=== PATIENT | female | born 1940 | race Caucasian/White ===

== ENCOUNTER 2016-09-25 16:02 | Emergency (ER) | payer MEDICARE ==
[2016-09-25 16:22] VITALS: BP 161/73
--- NOTE | 2016-09-25 16:55 | UC ---
Knee Pain HPI - HPI Summary HPI Summary: The patient comes in today for: 1. Knee pain: Onset: 3 days ago. Palliative/provocative: Nothing makes the knee painful or causes any new symptoms. Quality: No pain today. Region: Right knee Severity: 0/10 Time: Comes and goes. Associated symptoms: Event: She fell 3 days ago. She was going down the stairs when she felt forward and to the right side. During the fall, she ended up ending on her right knee. There was some pain at that time. She was able to walk around with no problems until today. She states that she was able to walk into this urgent care center with no pain. But, while she was in restoration today for an hour , while sitting the pain got worse. She noticed some redness before. She is very much concerned about a possible infection. She has not taken her temperature at home. She put ice on the knee for 10 minutes just before she came in to see us. She is not having pain at this time. When she was in bed this morning, she was doing "some exercises" and there was no pain, but just "tightness" as expected for stretching of the knee. * - History of Current Complaint Chief Complaint: UCLowerExtremity Stated Complaint: KNEE INJURY Time Seen by Provider: 09/25/16 16:20 Hx Obtained From: Patient ?: No - Allergies/Home Medications Allergies/Adverse Reactions: Allergies Allergy/AdvReac Type Severity Reaction Status Date / Time Codeine Allergy Mild Abdominal Verified 09/25/16 16:12 Pain Latex Allergy Hives Verified 09/25/16 16:12 Nickel Allergy Itching Verified 09/25/16 16:12 PMH/Surg Hx/FS Hx/Imm Hx Previously Healthy: No - "lymph nodes in the chest." Endocrine History Of: Reports: Thyroid Disease - hypo Denies: Diabetes, Hyperthyroidism, Hypothyroidism, Dyslipidemia Cardiovascular History Of: Denies: Cardiac Disorders, Hypertension, Pacemaker/ICD, Myocardial Infarction , Congestive Heart Failure, Atrial Fibrillation, Deep Vein Thrombosis, Bleeding Disorders Respiratory History Of: Denies: COPD, Asthma, Bronchitis, Pneumonia, Pulmonary Embolism GI/ History Of: Reports: Gastroesophageal Reflux - On no medications for this. Denies: Ulcer, Gastrointestinal Bleed, Gall Bladder Disease, Kidney Stones, Diverticulitis, Renal Disease, Urosepsis Neurological History Of: Denies: TIA, CVA, Dementia, Seizures, Migraine Psychological History Of: Reports: Anxiety - But on no medications. Denies: Depression, Bipolar Disorder, Schizophrenia, Post Traumatic Stress Disorder Cancer History Of: Denies: Lung Cancer, Colorectal Cancer, Breast Cancer, Prostate Cancer, Cervical Cancer Other History Of: Negative For: HIV, Hepatitis B, Hepatitis C, Anticoagulant Therapy - Surgical History Surgical History: Yes Surgery Procedure, Year, and Place: TUBAL LIGATION 1974; D&C 2X IN 1998; APPY; RT KNEE RELACEMENT 06/09/2014 AT [facility]; CATARACT SX RT EYE 2014 ; TOOTH EXTRACTIONS--WISDOM TEETH; COLONSCOPY 1X 2012 DONE AT [facility]; - Family History Known Family History: Positive: Cardiac Disease Negative: Hypertension - Social History Occupation: Retired Alcohol Use: Occasionally Substance Use Type: None Smoking Status (MU): Former Smoker When Did the Patient Quit Smoking/Using Tobacco: 40 years ago - Immunization History Most Recent Influenza Vaccination: unk Most Recent Tetanus Shot: up to date Most Recent Pneumonia Vaccination: up to date Review of Systems Constitutional: Negative Skin: Negative Eyes: Negative ENT: Negative Respiratory: Negative Cardiovascular: Negative Gastrointestinal: Negative Genitourinary: Negative Musculoskeletal: Arthralgia, Myalgia All Other Systems Reviewed And Are Negative: Yes Physical Exam Triage Information Reviewed: Yes Appearance: Well-Appearing, No Pain Distress, Well-Nourished Vital Signs: Initial Vital Signs Temp 98.2 F 09/25/16 16:14 Pulse 86 09/25/16 16:14 Resp 16 09/25/16 16:14 BP 161/73 09/25/16 16:14 Pulse Ox 97 09/25/16 16:14 Vital Signs Reviewed: Yes Eyes: Positive: Conjunctiva Clear. Negative: Discharge ENT: Positive: Hearing grossly normal. Negative: Pharyngeal erythema, Nasal congestion, Nasal drainage, TM bulging, TM dull, TM red, Tonsillar swelling, Tonsillar exudate Dental: Negative: Gross Decay/Caries @, Dental Fracture @ Neck: Positive: Supple, Nontender, No Lymphadenopathy. Negative: Nuchal Rigidity Respiratory: Positive: Chest non-tender, Lungs clear, No respiratory distress, No accessory muscle use. Negative: Crackles, Wheezing Cardiovascular: Positive: RRR, No Murmur Abdomen Description: Positive: Nontender, No Organomegaly, Soft. Negative: Distended, Guarding Musculoskeletal: Positive: Strength Intact, ROM Intact, Other: - Right knee: Well-healed anterior midline surgical scar. There is a 3 x 4 cm erythema, tender area with yellowing area around it. Neurological: Positive: Alert, Muscle Tone Normal Psychological: Positive: Age Appropriate Behavior, Consolable Skin: Negative: rashes, breakdown Diagnostics - Radiology No standard instances Xray Interpretation: No Acute Changes - IMPRESSION: STATUS POST TOTAL RIGHT KNEE REPLACEMENT SURGERY, NO EVIDENCE OF FRACTURE. Radiology Interpretation Completed By: Radiologist Knee Pain Course/Dx - Differential Dx/Diagnosis Differential Diagnosis/HQI/PQRI: Fracture (Closed), Sprain, Strain Provider Diagnoses: Contusion of the right anterior knee. Discharge - Discharge Plan Condition: Stable Disposition: HOME Patient Education Materials: Contusion in Adults (ED), Hematoma (ED) Referrals: Claribel Caba MD [Primary Care Provider] - 1 Week (Please see your primary care or orthopedic surgeon for follow up this coming week. If you get worse, please be seen sooner by us or the ER.)
--- NOTE | 2016-09-25 17:51 | RAD ---
INDICATION: Right knee injury. TECHNIQUE: 4 views of the right knee were obtained. FINDINGS: The patient is status post total right knee replacement surgery. The bones and prostheses are in normal alignment. No fracture is seen. There is no evidence for loosening. IMPRESSION: STATUS POST TOTAL RIGHT KNEE REPLACEMENT SURGERY, NO EVIDENCE OF FRACTURE.
== END 2016-09-25 18:25 | disposition home or self-care (01) ==
LOC: UCEAST 16:02
DX: S80.01XA Contusion of right knee, initial encounter (principal); W10.9XXA Fall (on) (from) unspecified stairs and steps, initial encounter; Y93.9 Activity, unspecified; Y92.9 Unspecified place or not applicable; Z96.651 Presence of right artificial knee joint; Z88.5 Allergy status to narcotic agent; Z87.891 Personal history of nicotine dependence
CPT/HCPCS: 99211; G0463

== ENCOUNTER 2017-12-02 08:36 | Emergency (ER) | payer MEDICARE ==
--- NOTE | 2017-12-02 10:21 | UC ---
Back Pain HPI - HPI Summary HPI Summary: Patient states that about 10 days ago she twisted her torso to the right side and ever since she has had pain on low back that radiates diagonally towards her abdomen. Pain responds to ibuprofen and she does not have any pain currently. Denies history of urolithiasis or dysuria, denies fever. States she had a recent abdominal sonogram which shows gallstone vs gallbladder polyp but denies that the pain has relationship with meals. - History of Current Complaint Chief Complaint: UCGeneralIllness Stated Complaint: SIDE ABDOMINAL PAIN, AND BACK PAIN Time Seen by Provider: 12/02/17 10:02 Hx Obtained From: Patient ?: No Onset/Duration: Sudden Onset, Lasting Weeks Timing: Intermittent, Lasting Minutes Severity Initially: Mild Severity Currently: Mild Pain Intensity: 0 Back Pain: Is Diffuse, Radiates To - right lower quadrant Character: Dull Aggravating Factor(s): Movement Alleviating Factor(s): Rest, OTC Meds Associated Signs And Symptoms: Positive: Negative - Risk Factors AAA Risk Factors: Negative TAD Risk Factors: Negative Cauda Equina Risk Factors: Negative Epidural Abscess Risk Factors: Negative - Allergies/Home Medications Allergies/Adverse Reactions: Allergies Allergy/AdvReac Type Severity Reaction Status Date / Time codeine Allergy stomach Verified 12/02/17 08:55 upset latex Allergy Rash Verified 12/02/17 08:55 nickel Allergy Rash Verified 12/02/17 08:55 PMH/Surg Hx/FS Hx/Imm Hx Previously Healthy: Yes Endocrine History: Hypothyroidism Other History Of: Negative For: HIV, Hepatitis B, Hepatitis C, Anticoagulant Therapy - Surgical History Surgical History: Yes Surgery Procedure, Year, and Place: TUBAL LIGATION 1974; D&C 2X IN 1998; APPY; RT KNEE RELACEMENT 06/09/2014 AT [facility] IN [facility]; CATARACT SX RT EYE 2014 ; TOOTH EXTRACTIONS--WISDOM TEETH; COLONSCOPY 1X 2012 DONE AT [facility]; - Family History Known Family History: Positive: None, Cardiac Disease Negative: Hypertension - Social History Alcohol Use: Occasionally Substance Use Type: None Smoking Status (MU): Former Smoker When Did the Patient Quit Smoking/Using Tobacco: 40 years ago - Immunization History Most Recent Influenza Vaccination: unk Most Recent Tetanus Shot: up to date Most Recent Pneumonia Vaccination: up to date Review of Systems Constitutional: Negative Musculoskeletal: Myalgia All Other Systems Reviewed And Are Negative: Yes Physical Exam Triage Information Reviewed: Yes Appearance: Well-Appearing, Obese Vital Signs: Initial Vital Signs Temp 97.9 F 12/02/17 08:56 Pulse 69 12/02/17 08:56 Resp 16 12/02/17 08:56 BP 166/75 12/02/17 08:56 Pulse Ox 99 12/02/17 08:56 Vital Signs Reviewed: Yes Eyes: Positive: Conjunctiva Clear ENT: Positive: Pharynx normal, Uvula midline Neck: Positive: Supple, Nontender, No Lymphadenopathy Respiratory: Positive: Chest non-tender, Lungs clear, Normal breath sounds, No respiratory distress Cardiovascular: Positive: RRR, No Murmur, Pulses Normal, Brisk Capillary Refill Abdomen Description: Positive: Nontender, No Organomegaly, Soft Bowel Sounds: Positive: Present Musculoskeletal: Positive: ROM Intact, No Edema, Other: - SLR negative b/l, gait wnl, DTR brisk and symmetrical Neurological: Positive: Alert, Muscle Tone Normal Back Pain Course/Dx - Course Course Of Treatment: muscle sprain responsive to NSAIDS, instructed patient to continue them as needed and to f/u with PCP. UA within normal limits - Differential Dx/Diagnosis Provider Diagnoses: Muscular Sprain Discharge - Sign-Out/Discharge Documenting (check all that apply): Discharge - Discharge Plan Condition: Stable Disposition: HOME Patient Education Materials: Musculoskeletal Pain (ED), Lower Back Exercises ( ED) Referrals: Giovanni Babcock DO [Primary Care Provider] - - Billing Disposition and Condition Condition: STABLE Disposition: HOME
[2017-12-02 10:48] VITALS: BP 177/77
== END 2017-12-02 10:30 | disposition home or self-care (01) ==
LOC: UCEAST 08:36
DX: S33.5XXA Sprain of ligaments of lumbar spine, initial encounter (principal); X50.1XXA Overexertion from prolonged static or awkward postures, initial encounter; Y93.9 Activity, unspecified; Y92.9 Unspecified place or not applicable; R10.31 Right lower quadrant pain; E03.9 Hypothyroidism, unspecified; Z88.5 Allergy status to narcotic agent; Z91.040 Latex allergy status; Z87.891 Personal history of nicotine dependence
CPT/HCPCS: 81003; 99211; G0463

== ENCOUNTER 2018-02-14 16:21 | Emergency (ER) | payer MEDICARE ==
--- NOTE | 2018-02-14 18:16 | UC ---
Jamal Pond Rebecca, scribed for Deirdre Hernandez MD on 02/14/18 at 1803 . Dizzy HPI HPI Summary: Pt is a 77 y/o F who presents to [facility] accompanied by her sister c/o dizziness. Pt has been experiencing intermittent episodes of dizziness for multiple months which she reports are worse the past few days. Previously, symptoms were only in the morning, lasting until 4435-3077, though now symptoms do not resolve. Reports "I don't feel like me" and that she gets an " otherwordly kind of feeling" during these episodes. Additionally c/o "a sense of doom," tinnitus (L>R), and decreased stool production. States that she has had 2 of the "episodes of doom today" one prompting her PCP visit and the other prompting her [facility] visit.Pt states during the second episode she thought " this is how it ends" Denies N/V, CP, SOB. PMHx vertigo - has Meclizine which she last took at 1400 without change. Pt denies MORALES, vision changes. This feels different from vertigo symptoms. PCP is Dr Babcock, who she saw this morning due to current symptoms and she had blood work done. Has also had an echocardiogram done for these symptoms previously. Pt states had her carotid arteries checked which were "ok" Notes that she has been on a keto diet, which she has ceased without improvement of sx. Pt unsure if any brain imaging. Does not exercise regularly but is active Pt's medications reviewed this visit. - History Of Current Complaint Chief Complaint: UCDizziness Stated Complaint: DIZZY,RINGING IN EARS Hx Obtained From: Patient ?: No Onset/Duration: Still Present, Worse Since - Last few days Timing: Intermittent Episode Lasting Severity Currently: None Pain Intensity: 0 Pain Scale Used: 0-10 Numeric Aggravating Factor(s): Nothing Alleviating Factor(s): Nothing Associated Signs And Symptoms: Negative: Nausea, Vomiting, Chest Pain, SOB - Allergies/Home Medications Allergies/Adverse Reactions: Allergies Allergy/AdvReac Type Severity Reaction Status Date / Time codeine Allergy stomach Verified 02/14/18 16:43 upset latex Allergy Rash Verified 02/14/18 16:43 nickel Allergy Rash Verified 02/14/18 16:43 shellfish derived Allergy See Comment Verified 02/14/18 16:43 Home Medications: Home Medications Aspirin 1 tab 02/14/18 [History] Meclizine TAB* [Antivert 12.5 TAB*] 12.5 mg PO TID PRN 02/14/18 [History Confirmed 02/14/18] Multivitamin [Multivitamins] 1 cap PO 02/14/18 [History] Vitamin B Complex [Super B-50 Complex] 1 each PO 02/14/18 [History] PMH/Surg Hx/FS Hx/Imm Hx - Additional Past Medical History Additional PMH: PMHx: Hypothyroid, vertigo NEGATIVE PMHx: HTN, COPD, DM, asthma Previously Healthy: Yes Endocrine History: Thyroid Disease Other History Of: Negative For: HIV, Hepatitis B, Hepatitis C, Anticoagulant Therapy - Surgical History Surgical History: Yes Surgery Procedure, Year, and Place: TUBAL LIGATION 1974; D&C 2X IN 1998; APPY; RT KNEE RELACEMENT 06/09/2014 AT [facility] IN [facility]; CATARACT SX RT EYE 2014 ; TOOTH EXTRACTIONS--WISDOM TEETH; COLONSCOPY 1X 2012 DONE AT [facility]; - Family History Known Family History: Positive: Cardiac Disease, Other - Gallbladder CA Negative: Hypertension - Social History Occupation: Retired Lives: Alone Alcohol Use: Occasionally Substance Use Type: None Smoking Status (MU): Former Smoker When Did the Patient Quit Smoking/Using Tobacco: 40 years ago - Immunization History Most Recent Influenza Vaccination: unk Most Recent Tetanus Shot: up to date Most Recent Pneumonia Vaccination: up to date Review of Systems Constitutional: Other - "sense of doom" Skin: Negative Eyes: Negative ENT: Other - Tinnitus Respiratory: Other - Wheezing Cardiovascular: Negative Gastrointestinal: Negative Genitourinary: Other - Decreased stool production Motor: Negative Neurovascular: Negative Musculoskeletal: Negative Neurological: Other - Dizziness - "otherwordly" Psychological: Negative All Other Systems Reviewed And Are Negative: Yes - Comments Additional Review of Systems Comments: NEGATIVE: N/V, CP, SOB. Physical Exam - Summary Physical Exam Summary: Vital Signs Reviewed: Yes A+Ox3, appropriate mildly anxious Eyes: Conjunctiva Clear, TIMOTEO. EOM intact and full ENT: Hearing grossly normal TM x 2 clear, mmoist, uvula midline, no exudate, no erythema Neck: Positive: Supple Respiratory: Positive: No respiratory distress, No accessory muscle use Cardiovascular: well perfused abd soft Musculoskeletal Exam: ambulatory without difficulty or assistance Neurological: Positive: Alert Psychological: Positive: Normal Response To Family Skin: Positive: no rash, no ecchymosis Triage Information Reviewed: Yes Vital Signs: Initial Vital Signs Temp 97.9 F 02/14/18 16:35 Pulse 79 02/14/18 16:35 Resp 18 02/14/18 16:35 BP 154/61 02/14/18 16:35 Pulse Ox 97 02/14/18 16:35 Diagnostics - EKG Cardiac Rate: NL - 63 bpm Cardiac Rhythm: Sinus: Normal - No change when compared to EKG from April 2016 ST Segment: Normal - No acute ST T wave changes Dizzy Course/Dx - Course Course Of Treatment: Patient medication reviewed this visit. Blood pressure noted and patient informed to follow up with PCP. Pt reports increasing intensity of dizziness Pt states today had a sense of doom with spell. Pt states sx worse than over last 6 months. reviewed EKG - no acute findings. recommend pt to ED for further evaluation and treatment. Pt agreement to go for eval - will go by EMS. pt has to urinate - will collect urine. POC FSBG. IV. EMS. spoke with Dr. Johnson - aware of pt to ED 1820 - Differential Dx/Diagnosis Provider Diagnoses: dizziness. tinnitus Discharge - Sign-Out/Discharge Documenting (check all that apply): Discharge/Admit/Transfer - Discharge Plan Condition: Fair Disposition: TRANS HIGHER LVL OF CARE FAC Referrals: Giovanni Babcock DO [Primary Care Provider] - - Billing Disposition and Condition Condition: FAIR Disposition: Trans Higher Lvl of Care Fac The documentation as recorded by the Jamal thurman Rebecca accurately reflects the service I personally performed and the decisions made by , Deirdre Hernandez MD.
[2018-02-14 18:48] VITALS: BP 154/80
== END 2018-02-14 18:48 | disposition short-term general hospital (02) ==
LOC: UCEAST 16:21
DX: H93.13 Tinnitus, bilateral (principal); R42 Dizziness and giddiness; Z88.5 Allergy status to narcotic agent; Z91.040 Latex allergy status; Z91.09 Other allergy status, other than to drugs and biological substances; Z91.013 Allergy to seafood; Z87.891 Personal history of nicotine dependence
CPT/HCPCS: 81003; 93005; 99213; G0463

== ENCOUNTER 2018-02-14 19:21 | Emergency (ER) | payer MEDICARE ==
[2018-02-14] MEDS ORDERED: ALPRAZolam TAB* 0.25 MG PO ONE (19:54)
--- NOTE | 2018-02-14 20:27 | RAD ---
INDICATION: Dizziness. COMPARISON: Comparison is made with a prior CT of the brain from April 24, 2016. TECHNIQUE: Contiguous axial sections of the brain were obtained from the skull base to the vertex without contrast. FINDINGS: The ventricles, cisterns and sulci are within normal limits. No significant focal abnormality or mass effect is seen. There is no evidence for hemorrhage. No significant focal osseous abnormality is seen. The visualized portion of the paranasal sinuses and mastoid air cells appear clear. Incidental note is made of hyperostosis frontalis interna. IMPRESSION: NO EVIDENCE FOR ACUTE INTRACRANIAL ABNORMALITY.
[2018-02-14 20:47] LABS: Hematocrit 39 % (35-47); Hemoglobin 13.5 g/dl (12.0-16.0); Mean Corpuscular HGB Conc 34 g/dl (31-36); Mean Corpuscular Hemoglobin 30 pg (27-31); Mean Corpuscular Volume 87 fL (80-97); Mean Platelet Volume 7.6 um3 (7.4-10.4); Platelet Count 320 10^3/ul (150-450); Red Blood Count 4.53 10^6/ul (4.00-5.40); Red Cell Distribution Width 14 % (10.5-15)
[2018-02-14 20:58] LABS: ABS Basophils 0 10^3/ul (0-0.2); ABS Eosinophils 0 10^3/ul (0-0.6); ABS Lymphocytes 1.5 10^3/ul (1.0-4.8); ABS Monocytes 0.4 10^3/ul (0-0.8); ABS Neutrophils 4.1 10^3/ul (1.5-7.7); ABS Nucleated RBC 0 10^3/ul; Eosinophil % 0.4 % (0-6); Lymphocyte % 24.9 % (25-47); Nucleated Red Blood Cells % 0
[2018-02-14 21:11] LABS: EGFR Non-African American 74.2 (>60)
--- NOTE | 2018-02-14 21:53 | ED ---
Terrance Pond Elizabeth scribed for Britta Kimball MD on 02/14/18 at 1939 . Dizziness - HPI Summary HPI Summary: This patient is a 77 year old F BIBA to [facility] accompanied by her sister with a chief complaint of intermittent dizziness since several months ago. The patient reports that her symptoms have gotten worse since in the last few days. The patient rates the pain 0/10 in severity. Symptoms aggravated by nothing. Symptoms alleviated by nothing. Patient reports tinnitus. Patient denies difficulty ambulating. The patient describes strange [place] and out-of- this world feeling during these episodes and says she feels like Im going to lose it and pass out. The patient has PMHx of vertigo but reports that these episodes feel different from her vertigo symptoms. The patient reports that she took 25 mg of Meclizine at 14:00 but reports that her symptoms have not alleviated. - History Of Current Complaint Chief Complaint: EDDizziness Stated Complaint: DIZZINESS Time Seen by Provider: 02/14/18 19:36 Hx Obtained From: Patient Onset/Duration: Suddenly Timing: Intermittent Episode Lasting Severity Initially: Mild Severity Currently: Mild Character: Dizzy Aggravating Factor(s): Nothing Alleviating Factor(s): Nothing Associated Signs And Symptoms: Positive: Tinnitus. Negative: Unsteady Gait, Inability to Walk - Allergies/Home Medications Allergies/Adverse Reactions: Allergies Allergy/AdvReac Type Severity Reaction Status Date / Time codeine Allergy stomach Verified 02/14/18 16:43 upset latex Allergy Rash Verified 02/14/18 16:43 nickel Allergy Rash Verified 02/14/18 16:43 shellfish derived Allergy See Comment Verified 02/14/18 16:43 Home Medications: Home Medications Aspirin EC TAB* [Ecotrin EC Low Dose 81 MG*] 81 mg PO DAILY 02/14/18 [History Confirmed 02/14/18] Levothyroxine TAB* [Synthroid TAB*] 175 mcg PO DAILY 02/14/18 [History Confirmed 02/14/18] Meclizine TAB* [Antivert 12.5 TAB*] 12.5 mg PO TID PRN 02/14/18 [History Confirmed 02/14/18] Multivitamins/Minerals TAB* [Theragran/minerals TAB*] 1 tab PO DAILY 02/14/18 [ History Confirmed 02/14/18] Vitamin B Complex CAP* [B Complex CAP*] 1 cap PO DAILY 02/14/18 [History Confirmed 02/14/18] PMH/Surg Hx/FS Hx/Imm Hx Endocrine/Hematology History: Reports: Hx Thyroid Disease - hypo Denies: Hx Anticoagulant Therapy, Hx Diabetes, Hx Systemic Lupus Erythematosus Cardiovascular History: Reports: Other Cardiovascular Problems/Disorders - Weakness generalized Denies: Hx Congestive Heart Failure, Hx Deep Vein Thrombosis, Hx Hypertension , Hx Myocardial Infarction, Hx Pacemaker/ICD Respiratory History: Reports: Other Respiratory Problems/Disorders - HX MULTIPLE PNEUMONIA, USE OF INHALER NEEDED Denies: Hx Asthma, Hx Chronic Obstructive Pulmonary Disease (COPD), Hx Lung Cancer, Hx Pneumonia, Hx Pulmonary Embolism GI History: Reports: Other GI Disorders - appendectemy Denies: Hx Gall Bladder Disease, Hx Gastrointestinal Bleed, Hx Ulcer, Hx Urosepsis History: Denies: Hx Dialysis, Hx Kidney Stones, Hx Renal Disease Musculoskeletal History: Denies: Hx Rheumatoid Arthritis Neurological History: Reports: Other Neuro Impairments/Disorders - vertigo Denies: Hx Dementia, Hx Migraine, Hx Seizures, Hx Transient Ischemic Attacks (TIA) Psychiatric History: Reports: Hx Anxiety - But on no medications. Denies: Hx Depression, Hx Schizophrenia, Hx Bipolar Disorder, Hx Substance Abuse - Cancer History Hx Chemotherapy: No - Surgical History Surgery Procedure, Year, and Place: TUBAL LIGATION 1974; D&C 2X [place] 1998; APPY; RT KNEE RELACEMENT 06/09/2014 AT [facility] IN [facility]; CATARACT SX RT EYE 2014 ; TOOTH EXTRACTIONS--WISDOM TEETH; COLONSCOPY 1X 2012 DONE AT [facility]; - Immunization History Date of Tetanus Vaccine: unk Date of Influenza Vaccine: fall 2016 Infectious Disease History: Yes Infectious Disease History: Reports: Hx Shingles - 2013 Denies: Hx Clostridium Difficile, Hx Hepatitis, Hx Human Immunodeficiency Virus (HIV), Hx of Known/Suspected MRSA, Hx Tuberculosis, Hx Known/Suspected VRE , Hx Known/Suspected VRSA, History Other Infectious Disease, Traveled Outside the [place] in Last 30 Days - Family History Known Family History: Positive: Cardiac Disease, Other - Gallbladder CA Negative: Hypertension - Social History Alcohol Use: Occasionally Substance Use Type: Reports: None Smoking Status (MU): Former Smoker Review of Systems ENT: Other - POSITIVE TINNITUS Negative: Shortness Of Breath Negative: Vomiting, Nausea Negative: Decreased ROM Neurological: Other - POSITIVE DIZZINESS All Other Systems Reviewed And Are Negative: Yes Physical Exam - Summary Physical Exam Summary: VITAL SIGNS: Reviewed. GENERAL: ~Patient is a well-developed and nourished FEMALE who is lying comfortable in the stretcher. Patient is not in any acute respiratory distress. HEAD AND FACE: No signs of trauma. No ecchymosis, hematomas or skull depressions. No sinus tenderness. EYES: PERRLA, EOMI x 2, No injected conjunctiva, no nystagmus. EARS: Hearing grossly intact. Ear canals and tympanic membranes are within normal limits. MOUTH: Oropharynx within normal limits. NECK: Supple, trachea is midline, no adenopathy, no JVD, no carotid bruit, no c- spine tenderness, neck with full ROM. CHEST: Symmetric, no tenderness at palpation LUNGS: Clear to auscultation bilaterally. No wheezing or crackles. CVS: Regular rate and rhythm, S1 and S2 present, no murmurs or gallops appreciated. ABDOMEN: Soft, non-tender. No signs of distention. No rebound no guarding, and no masses palpated. Bowel sounds are normal. EXTREMITIES: FROM in all major joints, no edema, no cyanosis or clubbing. NEURO: Alert and oriented x 3. No acute neurological deficits. Speech is normal and follows commands. GCS 15 SKIN: Dry and warm Triage Information Reviewed: Yes Vital Signs On Initial Exam: Initial Vitals Temp Pulse Resp BP Pulse Ox 97.5 F 64 18 170/59 97 02/14/18 19:27 02/14/18 19:27 02/14/18 19:27 02/14/18 19:27 02/14/18 19:27 Vital Signs Reviewed: Yes Diagnostics - Vital Signs Vital Signs Temp Pulse Resp BP Pulse Ox 02/14/18 19:27 97.5 F 64 18 170/59 97 - Laboratory Result Diagrams: 02/14/18 20:36 02/14/18 20:36 Lab Statement: Any lab studies that have been ordered have been reviewed, and results considered in the medical decision making process. - CT CT Brain CT Interpretation: No Acute Changes - IMPRESSION: NO EVIDENCE FOR ACUTE INTRACRANIAL ABNORMALITY. Dr. Kimball has reviewed this report. CT Interpretation Completed By: Radiologist - EKG 20:11 Cardiac Rate: NL - at 63 bpm EKG Rhythm: Sinus Rhythm EKG Interpretation: left axis devation, nml interval Re-Evaluation - Re-Evaluation First Re-eval Re-Evaluation Time: 21:30 Change: Improved Comment: Patient reports feeling better after receiving Xanax. Imaging and labs reviewed with patient. Discussed discharge plan with patient. Dizzy Course/Dx - Course Course Of Treatment: Patient is 77 y/o F with PMHx of vertigo reporting intermittent dizziness that differs from her typical vertigo symptoms. Workup was negative. Patient has no difficulty ambulating. Imaging and labs reviewed with patient. The patient reports feeling better after she received Xanax. Patient will be discharged home with diagnosis of dizziness and anxiety and is advised to follow up with her primary care provider in 1-2 days. The patient is agreeable with this plan. - Diagnoses Provider Diagnoses: Anxiety, Dizziness Discharge - Sign-Out/Discharge Documenting (check all that apply): Discharge/Admit/Transfer - Discharge Plan Condition: Stable Disposition: HOME Discharge Disposition Comment: discharge home Patient Education Materials: Dizziness (ED), Anxiety (ED) Referrals: Giovanni Babcock DO [Primary Care Provider] - 2 Days (Follow-up with primary care physician in 1-2 days.) Additional Instructions: Follow-up with primary care physician in 1-2 days. Return to the emergency department with any new or worsening symptoms. The documentation as recorded by the Terrance thurman Elizabeth accurately reflects the service I personally performed and the decisions made by , Britta Kimball MD.
--- NOTE | 2018-02-14 22:12 | ED ---
Trerance Pond Elizabeth, rhodaed for Britta Kimball MD on 02/14/18 at 2208 . Re-Evaluation - Re-Evaluation First Re-eval Re-Evaluation Time: 21:30 Change: Improved Comment: Patient reports feeling better after receiving Xanax. Imaging and labs reviewed with patient. Discussed discharge plan with patient. Course/Dx - Course Course Of Treatment: Patient is 77 y/o F with PMHx of vertigo reporting intermittent dizziness that differs from her typical vertigo symptoms. Workup was negative. Patient has no difficulty ambulating. Imaging and labs reviewed with patient. The patient reports feeling better after she received Xanax. Patient will be discharged home with diagnosis of dizziness and anxiety and is advised to follow up with her primary care provider in 1-2 days. The patient is agreeable with this plan. - Diagnoses Provider Diagnoses: Dizziness Discharge - Sign-Out/Discharge Documenting (check all that apply): Discharge/Admit/Transfer - Discharge Plan Condition: Stable Disposition: HOME Discharge Disposition Comment: discharge home Patient Education Materials: Dizziness (ED), Tinnitus (ED) Referrals: Giovanni Babcock DO [Primary Care Provider] - 2 Days (Follow-up with primary care physician in 1-2 days.) Cory Pond MD [Medical Doctor] - 2 Days Additional Instructions: Follow-up with primary care physician in 1-2 days. Follow-up with Dr. Pond , ENT, in 1-2 days. Return to the emergency department with any new or worsening symptoms. - Billing Disposition and Condition Condition: STABLE Disposition: Home The documentation as recorded by the Terrance thurman Elizabeth accurately reflects the service I personally performed and the decisions made by , Britta Kimball MD.
[2018-02-14 22:24] VITALS: BP 154/61
== END 2018-02-14 22:22 | disposition home or self-care (01) ==
LOC: ED 19:21
DX: R42 Dizziness and giddiness (principal); F41.9 Anxiety disorder, unspecified; E03.9 Hypothyroidism, unspecified; Z87.891 Personal history of nicotine dependence; Z88.5 Allergy status to narcotic agent
CPT/HCPCS: 36415; 70450; 80053; 83735; 84443; 85025; 93005; 99282; A9270-GY

== ENCOUNTER 2021-04-17 16:48 | Inpatient (IN) ==
[2021-04-17 18:11] LABS: Urine Appearance Cloudy; Urine Bilirubin Negative (Negative); Urine Blood Negative (Negative); Urine Color Yellow; Urine Glucose Negative (Negative); Urine Ketones Negative (Negative); Urine Nitrite Negative (Negative); Urine Protein Negative (Negative); Urine Specific Gravity 1.003 (1.002-1.030); Urine Urobilinogen Negative (Negative)
[2021-04-17 18:23] LABS: Hematocrit 31 % (35-47); Mean Corpuscular HGB Conc 36 g/dL (31-36); Mean Corpuscular Hemoglobin 34 pg (27-31); Mean Corpuscular Volume 95 fL (80-97); Mean Platelet Volume 7.7 fL (7.4-10.4); Platelet Count 286 10^3/uL (150-450); Red Blood Count 3.26 10^6 /uL (3.70-4.87); Red Cell Distribution Width 19 % (10-15); White Blood Count 1.3 10^3/uL (3.5-10.8)
[2021-04-17 18:25] LABS: Urine Bacteria 1+ (Absent); Urine Red Blood Cell Trace(0-2/hpf) (Absent); Urine Squamous Epithelial Cell Present (Absent); Urine White Blood Cell 1+(6-10/hpf) (Absent)
[2021-04-17 18:32] LABS: ABS Lymphocytes 0.6 10^3/ul (1.0-4.8); ABS Monocytes 0.1 10^3/ul (0-0.8); ABS Neutrophils 0.6 10^3/ul (1.5-7.7); Eosinophil % 1.9 %; Lymphocyte % 44.9 %; Nucleated Red Blood Cells % 0.8
[2021-04-17 18:39] LABS: Activated Partial Thrombo Time 29.3 seconds (26.0-38.0); INR 1.14 (0.86-1.15)
[2021-04-17 18:42] LABS: Albumin 4.3 g/dL (3.2-5.2); Albumin/Globulin Ratio 1.2 (1-3); C Reactive Protein 43.79 mg/L (<8.01); Direct Bilirubin 0.2 mg/dL (0.03-0.18); Globulin 3.5 g/dL (2-4); Indirect Bilirubin 0.6 mg/dL (0.3-1.0); Total Bilirubin 0.8 mg/dL (0.2-1.0); Total Protein 7.8 g/dL (6.4-8.9)
[2021-04-17] MEDS ORDERED: Iodixanol (CONTRAST) 320 MG/ML 100 ML SDV IV ONE (19:02)
[2021-04-17 19:59] LABS: Folate 19.24 ng/mL (5.90-24.80)
[2021-04-17] MEDS ORDERED: cefTRIAXone 1 gm/50 mL NS BAG 1 GM/50 ML BAG IV ONE (22:19)
[2021-04-17] MEDS ORDERED: metroNIDAZOLE IV 500 MG/100ML 500 MG/100 ML BAG IVPB ONE (22:20)
[2021-04-18] MEDS: Enoxaparin 40 MG/0.4 ML SYR SUBCUT SCH (06:00)
[2021-04-18 06:36] LABS: Hematocrit 30 % (35-47); Hemoglobin 10.4 g/dL (12.0-16.0); Mean Corpuscular HGB Conc 34 g/dL (31-36); Mean Corpuscular Hemoglobin 32 pg (27-31); Mean Corpuscular Volume 94 fL (80-97); Mean Platelet Volume 7.4 fL (7.4-10.4); Platelet Count 263 10^3/uL (150-450); Red Blood Count 3.22 10^6 /uL (3.70-4.87); Red Cell Distribution Width 19 % (10-15)
[2021-04-18 06:44] LABS: ABS Lymphocytes 0.5 10^3/ul (1.0-4.8); ABS Monocytes 0.1 10^3/ul (0-0.8); ABS Neutrophils 0.4 10^3/ul (1.5-7.7); Eosinophil % 3.4 %; Lymphocyte % 52.2 %; Nucleated Red Blood Cells % 0.2
[2021-04-18 06:49] LABS: Albumin/Globulin Ratio 1.2 (1-3); Calcium 9.1 mg/dL (8.6-10.3); EGFR African American 74.2 (>60); EGFR Non-African American 61.3 (>60); Globulin 3.4 g/dL (2-4); Potassium 3.7 mmol/L (3.5-5.0); Total Bilirubin 0.7 mg/dL (0.2-1.0); Total Protein 7.4 g/dL (6.4-8.9)
[2021-04-18 07:30] LABS: RBC Parasite Smear No Parasites Seen (No Parasite)
[2021-04-18] MEDS ORDERED: metroNIDAZOLE IV 500 MG/100ML 500 MG/100 ML BAG IVPB SCH (08:00)
[2021-04-18] MEDS: Cholecalciferol (VIT D3) 1,000 unit TAB PO SCH (08:48)
[2021-04-18] MEDS: Multivitamins/Minerals TAB PO SCH (10:11)
[2021-04-18] MEDS ORDERED: Zosyn per Pharmacy NOTE FOLLOW UP SCH (16:00)
[2021-04-18 16:58] LABS: Anisocytosis 2+
[2021-04-18 17:03] LABS: Calcium 9.4 mg/dL (8.6-10.3); EGFR African American 72.3 (>60); EGFR Non-African American 59.8 (>60); Potassium 4.2 mmol/L (3.5-5.0)
[2021-04-18] MEDS ORDERED: Morphine 2 MG/ML SYRINGE IV PRN (17:45)
[2021-04-18] MEDS ORDERED: ZOSYN 3.375 GM x ONE DOSE over 30 miuntes IV (18:00)
[2021-04-18] MEDS: Latanoprost 0.005% 2.5 ml BTL BOTH EYES SCH (21:00)
[2021-04-18] MEDS ORDERED: cefTRIAXone 1 gm/50 mL NS BAG 1 GM/50 ML BAG IVPB SCH (22:00)
[2021-04-18] MEDS: ZOSYN 3.375 GM Q8H per EXTENDED INFUSION IV SCH (22:30)
[2021-04-19] MEDS: Enoxaparin 40 MG/0.4 ML SYR SUBCUT SCH (05:01)
[2021-04-19 08:44] LABS: Hematocrit 28 % (35-47); Hemoglobin 9.9 g/dL (12.0-16.0); Mean Corpuscular HGB Conc 35 g/dL (31-36); Mean Corpuscular Hemoglobin 33 pg (27-31); Mean Corpuscular Volume 95 fL (80-97); Mean Platelet Volume 7.3 fL (7.4-10.4); Platelet Count 228 10^3/uL (150-450); Red Blood Count 2.99 10^6 /uL (3.70-4.87); Red Cell Distribution Width 19 % (10-15)
[2021-04-19 08:50] LABS: ABS Neutrophils 0.4 10^3/ul (1.5-7.7)
[2021-04-19 08:51] LABS: ABS Basophils 0.1 10^3/ul (0-0.2); ABS Lymphocytes 0.5 10^3/ul (1.0-4.8); ABS Monocytes 0.1 10^3/ul (0-0.8); Eosinophil % 3.5 %; Lymphocyte % 47.9 %; Nucleated Red Blood Cells % 0.5
[2021-04-19] MEDS: ZOSYN 3.375 GM Q8H per EXTENDED INFUSION IV SCH ×3 (09:51→22:09)
[2021-04-19] MEDS: Cholecalciferol (VIT D3) 1,000 unit TAB PO SCH (09:51)
[2021-04-19] MEDS: Multivitamins/Minerals TAB PO SCH (09:51)
[2021-04-19] MEDS: Latanoprost 0.005% 2.5 ml BTL BOTH EYES SCH (19:59)
[2021-04-20] MEDS: Enoxaparin 40 MG/0.4 ML SYR SUBCUT SCH (06:12)
[2021-04-20 06:36] LABS: Hematocrit 29 % (35-47); Hemoglobin 10.5 g/dL (12.0-16.0); Mean Corpuscular HGB Conc 36 g/dL (31-36); Mean Corpuscular Hemoglobin 34 pg (27-31); Mean Corpuscular Volume 94 fL (80-97); Mean Platelet Volume 7.3 fL (7.4-10.4); Platelet Count 222 10^3/uL (150-450); Red Blood Count 3.11 10^6 /uL (3.70-4.87); Red Cell Distribution Width 19 % (10-15); White Blood Count 1.2 10^3/uL (3.5-10.8)
[2021-04-20 06:46] LABS: ABS Lymphocytes 0.7 10^3/ul (1.0-4.8); ABS Monocytes 0.1 10^3/ul (0-0.8); ABS Neutrophils 0.4 10^3/ul (1.5-7.7); Eosinophil % 3.6 %; Nucleated Red Blood Cells % 0.4
[2021-04-20] MEDS: ZOSYN 3.375 GM Q8H per EXTENDED INFUSION IV SCH ×3 (09:27→23:01)
[2021-04-20] MEDS: Multivitamins/Minerals TAB PO SCH (09:29)
[2021-04-20] MEDS: Cholecalciferol (VIT D3) 1,000 unit TAB PO SCH (09:29)
[2021-04-20] MEDS: Latanoprost 0.005% 2.5 ml BTL BOTH EYES SCH (20:54)
[2021-04-20 23:40] LABS: Albumin 3.3 g/dL (3.4-4.7); Albumin/Globulin Ratio 0.94; Gamma Globulin 1.4 g/dL (0.6-1.6); Total Protein(PEP) 6.9 g/dL (6.3 - 7.9)
[2021-04-21 05:36] LABS: Hematocrit 27 % (35-47); Hemoglobin 9.7 g/dL (12.0-16.0); Mean Corpuscular HGB Conc 35 g/dL (31-36); Mean Corpuscular Hemoglobin 34 pg (27-31); Mean Corpuscular Volume 95 fL (80-97); Mean Platelet Volume 7.5 fL (7.4-10.4); Platelet Count 216 10^3/uL (150-450); Red Blood Count 2.89 10^6 /uL (3.70-4.87); Red Cell Distribution Width 19 % (10-15); White Blood Count 1.3 10^3/uL (3.5-10.8)
[2021-04-21] MEDS: Enoxaparin 40 MG/0.4 ML SYR SUBCUT SCH (05:45)
[2021-04-21 05:55] LABS: ABS Basophils 0.1 10^3/ul (0-0.2); ABS Lymphocytes 0.7 10^3/ul (1.0-4.8); ABS Monocytes 0.1 10^3/ul (0-0.8); ABS Neutrophils 0.4 10^3/ul (1.5-7.7); Eosinophil % 3.4 %; Nucleated Red Blood Cells % 0.4
[2021-04-21] MEDS: ZOSYN 3.375 GM Q8H per EXTENDED INFUSION IV SCH ×2 (06:46→15:19)
[2021-04-21] MEDS: Cholecalciferol (VIT D3) 1,000 unit TAB PO SCH (08:28)
[2021-04-21] MEDS: Multivitamins/Minerals TAB PO SCH (08:28)
[2021-04-21 09:30] LABS: Anaplasma phagocytophilum Negative (Negative); B. miyamotoi PCR, B Negative (Negative); Babesia divergens/MO-1 Negative (Negative); Babesia ducani Negative (Negative); Ehrlichia chaffeensis Negative (Negative); Ehrlichia ewingii/canis Negative (Negative); Ehrlichia muris eauclairensis Negative (Negative)
[2021-04-21 19:16] VITALS: BP 151/59
[2021-04-27 16:59] LABS: BM Chromosome Source r pic; BM Result Summary Abnormal
== END 2021-04-21 19:28 | disposition short-term general hospital (02) | DRG 835 ==
LOC: ED 16:48 → EDHOLD 16:48 → SUATTDRO 04-18 01:03 → MEDTELE 04-18 10:41 → SUATTDRO 04-20 13:00
PROVIDERS: ADMIT Student in an Organized Health Care Education/Training Program; ATTEND Internal Medicine

== ENCOUNTER 2022-05-20 16:08 | Inpatient (IN) ==
[2022-05-20] MEDS ORDERED: NS 0.9% 1000 ml BAG 1,000 ML IV ONE (16:14)
[2022-05-20 17:14] LABS: ABS Neutrophils 0.3 10^3/ul (1.5-7.7); Hematocrit 24 % (35-47); Hemoglobin 8.1 g/dL (12.0-16.0); Mean Corpuscular HGB Conc 33 g/dL (31-36); Mean Corpuscular Hemoglobin 31 pg (27-31); Mean Corpuscular Volume 92 fL (80-97); Mean Platelet Volume 7.3 fL (7.4-10.4); Platelet Count 135 10^3/uL (150-450); Red Blood Count 2.65 10^6 /uL (3.70-4.87); Red Cell Distribution Width 18 % (10-15); White Blood Count 0.5 10^3/uL (3.5-10.8)
[2022-05-20 17:32] LABS: Albumin 3.5 g/dL (3.2-5.2); Albumin/Globulin Ratio 1.2 (1-3); Calcium 8.5 mg/dL (8.6-10.3); Globulin 2.9 g/dL (2-4); Potassium 3.8 mmol/L (3.5-5.0); Total Bilirubin 1.3 mg/dL (0.2-1.0); Total Protein 6.4 g/dL (6.4-8.9); eGFR CKD-EPI 62.5 (>60)
[2022-05-20] MEDS ORDERED: Cefepime 1 GM in Dextrose 1 GM/50 ML BAG IV ONE (17:36)
[2022-05-20 18:23] LABS: ABS Lymphocytes 0.2 10^3/ul (1.0-4.8); Eosinophil % 2.1 %; Lymphocyte % 33.5 %; Nucleated Red Blood Cells % 0.3
[2022-05-20] MEDS ORDERED: Iohexol 350 (CONTRAST) 500 ML MDV IV ONE (19:16)
[2022-05-20] MEDS ORDERED: Glycerin ADULT 2.4 gm SUPP PR PRN (20:40)
[2022-05-20] MEDS ORDERED: Senna TAB 8.6 mg TAB PO SCH (21:00)
[2022-05-20] MEDS: Enoxaparin 40 MG/0.4 ML SYR SUBCUT SCH (21:03)
[2022-05-20] MEDS: Polyethylene Glycol 3350 17 GM PACKET PO SCH (21:29)
[2022-05-20] MEDS ORDERED: Ondansetron 4 mg VIAL 2 MG/ML 2 ml VIAL IV ONE (23:17)
[2022-05-21] MEDS ORDERED: Iodixanol (CONTRAST) 320 MG/ML 100 ML SDV IV ONE (00:12)
[2022-05-21 07:01] LABS: ABS Lymphocytes 0.3 10^3/ul (1.0-4.8); ABS Monocytes 0.1 10^3/ul (0-0.8); ABS Neutrophils 0.4 10^3/ul (1.5-7.7); Hematocrit 23 % (35-47); Hemoglobin 8.1 g/dL (12.0-16.0); Lymphocyte % 40.6 %; Mean Corpuscular HGB Conc 35 g/dL (31-36); Mean Corpuscular Hemoglobin 32 pg (27-31); Mean Corpuscular Volume 92 fL (80-97); Mean Platelet Volume 7.1 fL (7.4-10.4); Nucleated Red Blood Cells % 0.4; Platelet Count 99 10^3/uL (150-450); Red Blood Count 2.52 10^6 /uL (3.70-4.87); Red Cell Distribution Width 18 % (10-15); White Blood Count 0.9 10^3/uL (3.5-10.8)
[2022-05-21 07:29] LABS: Calcium 8.4 mg/dL (8.6-10.3); Potassium 3.4 mmol/L (3.5-5.0); eGFR CKD-EPI 63.3 (>60)
[2022-05-21] MEDS: cefTRIAXone 2 gm/50 mL D5W 2 GM/50 ML BAG IV SCH (07:55)
[2022-05-21] MEDS: Multivitamins/Minerals TAB PO SCH (10:14)
[2022-05-21] MEDS: Polyethylene Glycol 3350 17 GM PACKET PO SCH ×2 (10:16→14:36)
[2022-05-21] MEDS: Cholecalciferol (VIT D3) 1,000 unit TAB PO SCH (10:16)
[2022-05-21] MEDS ORDERED: Senna TAB 8.6 mg TAB PO PRN (15:34)
[2022-05-21] MEDS: Enoxaparin 40 MG/0.4 ML SYR SUBCUT SCH (20:51)
[2022-05-22] MEDS ORDERED: Polyethylene Glycol 3350 17 GM PACKET PO SCH (08:00)
[2022-05-22] MEDS: cefTRIAXone 2 gm/50 mL D5W 2 GM/50 ML BAG IV SCH (10:47)
[2022-05-22] MEDS: Cholecalciferol (VIT D3) 1,000 unit TAB PO SCH (10:47)
[2022-05-22] MEDS: Multivitamins/Minerals TAB PO SCH (10:47)
[2022-05-22 11:07] LABS: Urine Appearance Clear; Urine Bilirubin Negative (Negative); Urine Color Yellow; Urine Glucose Negative (Negative); Urine Ketones Negative (Negative)
[2022-05-22 11:08] LABS: Urine Blood Negative (Negative); Urine Nitrite Negative (Negative); Urine Protein Negative (Negative); Urine Specific Gravity <=1.005 (1.005-1.030); Urine Urobilinogen 0.2 (Negative) (Negative)
[2022-05-22 12:20] LABS: Hematocrit 25 % (35-47); Hemoglobin 8.2 g/dL (12.0-16.0); Mean Corpuscular HGB Conc 33 g/dL (31-36); Mean Corpuscular Hemoglobin 30 pg (27-31); Mean Corpuscular Volume 92 fL (80-97); Platelet Count 116 10^3/uL (150-450); Red Blood Count 2.72 10^6 /uL (3.70-4.87); Red Cell Distribution Width 18 % (10-15); White Blood Count 0.9 10^3/uL (3.5-10.8)
[2022-05-22] MEDS ORDERED: Iohexol 350 (CONTRAST) 500 ML MDV IV ONE (12:34)
[2022-05-22 13:00] LABS: ABS Lymphocytes 0.3 10^3/ul (1.0-4.8); ABS Neutrophils 0.5 10^3/ul (1.5-7.7); Eosinophil % 2.2 %; Lymphocyte % 31.5 %; Nucleated Red Blood Cells % 0.2
[2022-05-22 13:05] LABS: Calcium 8.5 mg/dL (8.6-10.3); Potassium 3.3 mmol/L (3.5-5.0); eGFR CKD-EPI 78.4 (>60)
[2022-05-22] MEDS ORDERED: Polyethylene Glycol 3350 17 GM PACKET PO PRN (15:04)
[2022-05-22] MEDS ORDERED: KCL 20 MEQ/100 ML IVPREMIX 20 MEQ/100 ML BAG IV ONE (15:25)
[2022-05-22 16:06] LABS: Magnesium 1.8 mg/dL (1.9-2.7)
[2022-05-22] MEDS: metroNIDAZOLE IV 500 MG/100ML 500 MG/100 ML BAG IVPB SCH (19:54)
[2022-05-22] MEDS: Latanoprost 0.005% 2.5 ml BTL BOTH EYES SCH (21:14)
[2022-05-22] MEDS: Enoxaparin 40 MG/0.4 ML SYR SUBCUT SCH (21:14)
[2022-05-23] MEDS: metroNIDAZOLE IV 500 MG/100ML 500 MG/100 ML BAG IVPB SCH ×3 (03:12→21:01)
[2022-05-23 05:52] LABS: Hematocrit 23 % (35-47); Hemoglobin 7.8 g/dL (12.0-16.0); Mean Corpuscular HGB Conc 33 g/dL (31-36); Mean Corpuscular Hemoglobin 31 pg (27-31); Mean Corpuscular Volume 93 fL (80-97); Mean Platelet Volume 7.4 fL (7.4-10.4); Platelet Count 106 10^3/uL (150-450); Red Blood Count 2.52 10^6 /uL (3.70-4.87); Red Cell Distribution Width 18 % (10-15); White Blood Count 0.9 10^3/uL (3.5-10.8)
[2022-05-23 06:01] LABS: ABS Lymphocytes 0.3 10^3/ul (1.0-4.8); ABS Monocytes 0.1 10^3/ul (0-0.8); ABS Neutrophils 0.5 10^3/ul (1.5-7.7); Eosinophil % 1.8 %; Nucleated Red Blood Cells % 0.4
[2022-05-23 06:26] LABS: Calcium 8.2 mg/dL (8.6-10.3); Potassium 3.4 mmol/L (3.5-5.0)
[2022-05-23 06:30] LABS: eGFR CKD-EPI 74.9 (>60)
[2022-05-23] MEDS ORDERED: Potassium Chlor 20 meq TAB.ER PO ONE (07:35)
[2022-05-23] MEDS: Ciprofloxacin 400mg IVPREMIX 400 MG/200 ML BAG IVPB SCH (08:39)
[2022-05-23] MEDS: Cholecalciferol (VIT D3) 1,000 unit TAB PO SCH (08:40)
[2022-05-23] MEDS: Multivitamins/Minerals TAB PO SCH (08:40)
[2022-05-23 09:52] LABS: Magnesium 1.8 mg/dL (1.9-2.7)
[2022-05-23] MEDS ORDERED: Magnesium Sulfate 2 gm BAG 2 GM/50 ML BAG IVPB ONE (12:03)
[2022-05-23] MEDS: Enoxaparin 40 MG/0.4 ML SYR SUBCUT SCH (21:06)
[2022-05-23] MEDS: Latanoprost 0.005% 2.5 ml BTL BOTH EYES SCH (21:07)
[2022-05-24] MEDS: metroNIDAZOLE IV 500 MG/100ML 500 MG/100 ML BAG IVPB SCH ×3 (02:57→21:05)
[2022-05-24 06:31] LABS: Hematocrit 23 % (35-47); Hemoglobin 7.7 g/dL (12.0-16.0); Mean Corpuscular HGB Conc 33 g/dL (31-36); Mean Corpuscular Hemoglobin 31 pg (27-31); Mean Corpuscular Volume 94 fL (80-97); Mean Platelet Volume 7.6 fL (7.4-10.4); Platelet Count 112 10^3/uL (150-450); Red Blood Count 2.47 10^6 /uL (3.70-4.87); Red Cell Distribution Width 18 % (10-15); White Blood Count 1.9 10^3/uL (3.5-10.8)
[2022-05-24 06:59] LABS: ABS Lymphocytes 0.4 10^3/ul (1.0-4.8); ABS Monocytes 0.1 10^3/ul (0-0.8); ABS Neutrophils 1.4 10^3/ul (1.5-7.7); Dohle Bodies Present; Eosinophil % 1.2 %; Lymphocyte % 19.4 %; Nucleated Red Blood Cells % 0.1
[2022-05-24 07:00] LABS: Toxic Granulation 1+
[2022-05-24 07:08] LABS: Calcium 8.1 mg/dL (8.6-10.3); Potassium 3.4 mmol/L (3.5-5.0)
[2022-05-24] MEDS ORDERED: Potassium Chlor 20 meq TAB.ER PO ONE (08:07)
[2022-05-24] MEDS: Cholecalciferol (VIT D3) 1,000 unit TAB PO SCH (09:20)
[2022-05-24] MEDS: Multivitamins/Minerals TAB PO SCH (09:20)
[2022-05-24] MEDS: Ciprofloxacin 400mg IVPREMIX 400 MG/200 ML BAG IVPB SCH ×2 (09:29→22:32)
[2022-05-24] MEDS ORDERED: Vancomycin 1,500 MG in NS 0.9% 250 ml 250 ML IVPB SCH (11:34)
[2022-05-24] MEDS ORDERED: Vancomycin per Pharmacy 1 EA NOTE FOLLOW UP PRN (11:50)
[2022-05-24 11:53] LABS: C Reactive Protein 293.93 mg/L (<8.01)
[2022-05-24] MEDS ORDERED: Vancomycin 2,000 MG in NS 0.9% 500 ml BAG 500 ML IVPB ONE (12:00)
[2022-05-24 15:04] LABS: Erythrocyte Sed Rate > 120 mm/Hr (0-29)
[2022-05-24] MEDS: Latanoprost 0.005% 2.5 ml BTL BOTH EYES SCH ×2 (21:07→22:36)
[2022-05-24] MEDS: Enoxaparin 40 MG/0.4 ML SYR SUBCUT SCH (21:07)
[2022-05-25] MEDS: metroNIDAZOLE IV 500 MG/100ML 500 MG/100 ML BAG IVPB SCH ×3 (02:49→19:40)
[2022-05-25 05:53] LABS: Hematocrit 24 % (35-47); Hemoglobin 7.8 g/dL (12.0-16.0); Mean Corpuscular HGB Conc 33 g/dL (31-36); Mean Corpuscular Hemoglobin 31 pg (27-31); Mean Corpuscular Volume 94 fL (80-97); Mean Platelet Volume 7.4 fL (7.4-10.4); Platelet Count 116 10^3/uL (150-450); Red Cell Distribution Width 18 % (10-15); White Blood Count 3.1 10^3/uL (3.5-10.8)
[2022-05-25 05:54] LABS: Calcium 8.3 mg/dL (8.6-10.3); Magnesium 1.8 mg/dL (1.9-2.7); Potassium 3.6 mmol/L (3.5-5.0); eGFR CKD-EPI 82.2 (>60)
[2022-05-25] MEDS ORDERED: Magnesium Sulfate IV 1GM/100ML 1 GM/100 ML BAG IV ONE (07:02)
[2022-05-25] MEDS: Multivitamins/Minerals TAB PO SCH (08:34)
[2022-05-25] MEDS: Cholecalciferol (VIT D3) 1,000 unit TAB PO SCH (08:34)
[2022-05-25] MEDS: Ciprofloxacin 400mg IVPREMIX 400 MG/200 ML BAG IVPB SCH ×2 (09:30→20:51)
[2022-05-25 09:41] LABS: RBC Morphology Normal (Normal)
[2022-05-25 09:42] LABS: ABS Lymphocytes 0.5 10^3/ul (1.0-4.8); ABS Monocytes 0.1 10^3/ul (0-0.8); ABS Neutrophils 2.4 10^3/ul (1.5-7.7); Eosinophil % 0.9 %; Lymphocyte % 17.1 %; Nucleated Red Blood Cells % 0.1
[2022-05-25] MEDS ORDERED: Vancomycin 1,500 MG in NS 0.9% 250 ml 250 ML IVPB SCH (12:00)
[2022-05-25] MEDS: Enoxaparin 40 MG/0.4 ML SYR SUBCUT SCH (19:40)
[2022-05-25] MEDS: Latanoprost 0.005% 2.5 ml BTL BOTH EYES SCH (23:19)
[2022-05-26] MEDS: metroNIDAZOLE IV 500 MG/100ML 500 MG/100 ML BAG IVPB SCH (02:52)
[2022-05-26 05:49] LABS: ABS Lymphocytes 0.5 10^3/ul (1.0-4.8); ABS Monocytes 0.1 10^3/ul (0-0.8); ABS Neutrophils 1.4 10^3/ul (1.5-7.7); Eosinophil % 1.4 %; Hematocrit 23 % (35-47); Hemoglobin 7.3 g/dL (12.0-16.0); Lymphocyte % 25.5 %; Mean Corpuscular HGB Conc 32 g/dL (31-36); Mean Corpuscular Hemoglobin 31 pg (27-31); Mean Corpuscular Volume 95 fL (80-97); Mean Platelet Volume 7.4 fL (7.4-10.4); Nucleated Red Blood Cells % 0.2; Platelet Count 125 10^3/uL (150-450); Red Blood Count 2.39 10^6 /uL (3.70-4.87); Red Cell Distribution Width 18 % (10-15); White Blood Count 2.1 10^3/uL (3.5-10.8)
[2022-05-26 06:05] LABS: Magnesium 1.7 mg/dL (1.9-2.7); Potassium 3.8 mmol/L (3.5-5.0); eGFR CKD-EPI 80.9 (>60)
[2022-05-26] MEDS ORDERED: Magnesium Sulfate 2 gm BAG 2 GM/50 ML BAG IVPB ONE (07:36)
[2022-05-26] MEDS: Multivitamins/Minerals TAB PO SCH (10:14)
[2022-05-26] MEDS: Cholecalciferol (VIT D3) 1,000 unit TAB PO SCH (10:14)
[2022-05-26] MEDS: Ciprofloxacin 400mg IVPREMIX 400 MG/200 ML BAG IVPB SCH (11:05)
[2022-05-26 15:15] LABS: Hematocrit 25 % (35-47); Hemoglobin 8.3 g/dL (12.0-16.0); Mean Corpuscular HGB Conc 33 g/dL (31-36); Mean Corpuscular Hemoglobin 31 pg (27-31); Mean Corpuscular Volume 95 fL (80-97); Mean Platelet Volume 7.3 fL (7.4-10.4); Platelet Count 145 10^3/uL (150-450); Red Blood Count 2.67 10^6 /uL (3.70-4.87); Red Cell Distribution Width 18 % (10-15); White Blood Count 1.8 10^3/uL (3.5-10.8)
[2022-05-26] MEDS: Cefepime 2 GM in Dextrose 2 GM/50 ML BAG IV SCH (18:08)
[2022-05-26 19:40] LABS: ABS Lymphocytes 0.6 10^3/ul (1.0-4.8); ABS Monocytes 0.1 10^3/ul (0-0.8); Eosinophil % 1.4 %; Nucleated Red Blood Cells % 0.1
[2022-05-26] MEDS: Enoxaparin 40 MG/0.4 ML SYR SUBCUT SCH (20:43)
[2022-05-26] MEDS: Nystatin TOP POWDER 15 GM BTL TOPICAL SCH (20:46)
[2022-05-26] MEDS: Latanoprost 0.005% 2.5 ml BTL BOTH EYES SCH (22:37)
[2022-05-27] MEDS: Cefepime 2 GM in Dextrose 2 GM/50 ML BAG IV SCH ×2 (05:29→17:35)
[2022-05-27 06:07] LABS: Hematocrit 25 % (35-47); Hemoglobin 8.2 g/dL (12.0-16.0); Mean Corpuscular HGB Conc 33 g/dL (31-36); Mean Corpuscular Hemoglobin 32 pg (27-31); Mean Corpuscular Volume 95 fL (80-97); Mean Platelet Volume 7.1 fL (7.4-10.4); Platelet Count 142 10^3/uL (150-450); Red Blood Count 2.61 10^6 /uL (3.70-4.87); Red Cell Distribution Width 18 % (10-15); White Blood Count 1.3 10^3/uL (3.5-10.8)
[2022-05-27 06:31] LABS: ABS Lymphocytes 0.6 10^3/ul (1.0-4.8); ABS Monocytes 0.1 10^3/ul (0-0.8); ABS Neutrophils 0.6 10^3/ul (1.5-7.7); Eosinophil % 2.4 %; Nucleated Red Blood Cells % 0.7
[2022-05-27 06:50] LABS: Calcium 8.1 mg/dL (8.6-10.3); Potassium 3.9 mmol/L (3.5-5.0); eGFR CKD-EPI 88.2 (>60)
[2022-05-27] MEDS: Multivitamins/Minerals TAB PO SCH (08:52)
[2022-05-27] MEDS: Cholecalciferol (VIT D3) 1,000 unit TAB PO SCH (08:52)
[2022-05-27] MEDS: Nystatin TOP POWDER 15 GM BTL TOPICAL SCH ×2 (09:00→20:07)
[2022-05-27] MEDS ORDERED: Vancomycin Trough Check NOTE FOLLOW UP ONE (11:30)
[2022-05-27] MEDS: Enoxaparin 40 MG/0.4 ML SYR SUBCUT SCH (20:07)
[2022-05-27] MEDS: Latanoprost 0.005% 2.5 ml BTL BOTH EYES SCH (21:55)
[2022-05-28] MEDS: Cefepime 2 GM in Dextrose 2 GM/50 ML BAG IV SCH ×2 (05:53→17:48)
[2022-05-28 06:07] LABS: Hematocrit 25 % (35-47); Hemoglobin 8.2 g/dL (12.0-16.0); Mean Corpuscular HGB Conc 32 g/dL (31-36); Mean Corpuscular Hemoglobin 30 pg (27-31); Mean Corpuscular Volume 94 fL (80-97); Platelet Count 160 10^3/uL (150-450); Red Cell Distribution Width 18 % (10-15); White Blood Count 1.1 10^3/uL (3.5-10.8)
[2022-05-28] MEDS ORDERED: Filgrastim* 480 MCG VIAL (AUTOSUB = ZARXIO*) SUBCUT ONE ×2 (06:22→11:28)
[2022-05-28 06:28] LABS: Calcium 8.2 mg/dL (8.6-10.3); Magnesium 1.9 mg/dL (1.9-2.7); Potassium 4.1 mmol/L (3.5-5.0); eGFR CKD-EPI 83.6 (>60)
[2022-05-28 06:45] LABS: ABS Lymphocytes 0.6 10^3/ul (1.0-4.8); ABS Monocytes 0.1 10^3/ul (0-0.8); ABS Neutrophils 0.3 10^3/ul (1.5-7.7); Eosinophil % 2.4 %; Lymphocyte % 52.9 %; Nucleated Red Blood Cells % 0.9
[2022-05-28] MEDS: Multivitamins/Minerals TAB PO SCH (08:16)
[2022-05-28] MEDS: Nystatin TOP POWDER 15 GM BTL TOPICAL SCH ×3 (08:17→21:36)
[2022-05-28] MEDS: Cholecalciferol (VIT D3) 1,000 unit TAB PO SCH (08:17)
[2022-05-28] MEDS: Enoxaparin 40 MG/0.4 ML SYR SUBCUT SCH (21:34)
[2022-05-28] MEDS: Latanoprost 0.005% 2.5 ml BTL BOTH EYES SCH (21:37)
[2022-05-29] MEDS: Cefepime 2 GM in Dextrose 2 GM/50 ML BAG IV SCH ×2 (05:15→18:05)
[2022-05-29 07:22] LABS: Hematocrit 26 % (35-47); Hemoglobin 8.7 g/dL (12.0-16.0); Mean Corpuscular HGB Conc 33 g/dL (31-36); Mean Corpuscular Hemoglobin 31 pg (27-31); Mean Corpuscular Volume 94 fL (80-97); Mean Platelet Volume 7.1 fL (7.4-10.4); Platelet Count 167 10^3/uL (150-450); Red Cell Distribution Width 18 % (10-15); White Blood Count 4.4 10^3/uL (3.5-10.8)
[2022-05-29 08:24] LABS: ABS Lymphocytes 0.7 10^3/ul (1.0-4.8); ABS Monocytes 0.3 10^3/ul (0-0.8); ABS Neutrophils 3.4 10^3/ul (1.5-7.7); Eosinophil % 0.4 %; Lymphocyte % 15.4 %; Nucleated Red Blood Cells % 0.5
[2022-05-29] MEDS: Cholecalciferol (VIT D3) 1,000 unit TAB PO SCH (09:20)
[2022-05-29] MEDS: Multivitamins/Minerals TAB PO SCH (09:20)
[2022-05-29] MEDS: Nystatin TOP POWDER 15 GM BTL TOPICAL SCH ×2 (09:24→20:03)
[2022-05-29] MEDS: Enoxaparin 40 MG/0.4 ML SYR SUBCUT SCH (20:01)
[2022-05-29] MEDS: Latanoprost 0.005% 2.5 ml BTL BOTH EYES SCH (20:03)
[2022-05-30] MEDS: Cefepime 2 GM in Dextrose 2 GM/50 ML BAG IV SCH ×2 (05:34→17:55)
[2022-05-30 08:19] LABS: Hematocrit 27 % (35-47); Hemoglobin 8.7 g/dL (12.0-16.0); Mean Corpuscular HGB Conc 33 g/dL (31-36); Mean Corpuscular Hemoglobin 31 pg (27-31); Mean Corpuscular Volume 95 fL (80-97); Mean Platelet Volume 7.1 fL (7.4-10.4); Platelet Count 180 10^3/uL (150-450); Red Blood Count 2.79 10^6 /uL (3.70-4.87); Red Cell Distribution Width 18 % (10-15); White Blood Count 6.1 10^3/uL (3.5-10.8)
[2022-05-30 08:38] LABS: Calcium 8.8 mg/dL (8.6-10.3); Potassium 4.2 mmol/L (3.5-5.0); eGFR CKD-EPI 78.4 (>60)
[2022-05-30] MEDS: Multivitamins/Minerals TAB PO SCH (08:40)
[2022-05-30] MEDS: Cholecalciferol (VIT D3) 1,000 unit TAB PO SCH (08:40)
[2022-05-30] MEDS: Nystatin TOP POWDER 15 GM BTL TOPICAL SCH ×3 (08:52→21:28)
[2022-05-30 10:21] LABS: ABS Lymphocytes 0.6 10^3/ul (1.0-4.8); ABS Monocytes 0.7 10^3/ul (0-0.8); ABS Neutrophils 4.7 10^3/ul (1.5-7.7); Eosinophil % 0.3 %; Lymphocyte % 10.5 %; Nucleated Red Blood Cells % 0.3
[2022-05-30] MEDS: Enoxaparin 40 MG/0.4 ML SYR SUBCUT SCH (19:45)
[2022-05-30] MEDS: Latanoprost 0.005% 2.5 ml BTL BOTH EYES SCH (21:27)
[2022-05-31] MEDS: Cefepime 2 GM in Dextrose 2 GM/50 ML BAG IV SCH (05:34)
[2022-05-31] MEDS: Cholecalciferol (VIT D3) 1,000 unit TAB PO SCH (07:43)
[2022-05-31] MEDS: Multivitamins/Minerals TAB PO SCH (07:43)
[2022-05-31] MEDS: Nystatin TOP POWDER 15 GM BTL TOPICAL SCH ×2 (07:43→21:42)
[2022-05-31 07:57] LABS: Hematocrit 27 % (35-47); Mean Corpuscular HGB Conc 34 g/dL (31-36); Mean Corpuscular Hemoglobin 32 pg (27-31); Mean Corpuscular Volume 94 fL (80-97); Mean Platelet Volume 6.9 fL (7.4-10.4); Platelet Count 202 10^3/uL (150-450); Red Blood Count 2.84 10^6 /uL (3.70-4.87); Red Cell Distribution Width 18 % (10-15); White Blood Count 4.7 10^3/uL (3.5-10.8)
[2022-05-31 08:44] LABS: ABS Lymphocytes 0.8 10^3/ul (1.0-4.8); ABS Monocytes 0.6 10^3/ul (0-0.8); ABS Neutrophils 3.3 10^3/ul (1.5-7.7); Eosinophil % 0.2 %; Lymphocyte % 16.3 %; Nucleated Red Blood Cells % 0.5
[2022-05-31 08:46] LABS: Calcium 8.8 mg/dL (8.6-10.3); Potassium 4.2 mmol/L (3.5-5.0)
[2022-05-31] MEDS: Enoxaparin 40 MG/0.4 ML SYR SUBCUT SCH (21:41)
[2022-05-31] MEDS: Latanoprost 0.005% 2.5 ml BTL BOTH EYES SCH (21:42)
[2022-06-01] MEDS: Multivitamins/Minerals TAB PO SCH (09:28)
[2022-06-01] MEDS: Cholecalciferol (VIT D3) 1,000 unit TAB PO SCH (09:28)
[2022-06-01] MEDS: Nystatin TOP POWDER 15 GM BTL TOPICAL SCH (09:57)
[2022-06-01 11:32] VITALS: BP 150/67
== END 2022-06-01 11:45 | disposition home health service (06) | DRG 872 ==
LOC: EDHOLD 16:08 → ED 16:08 → MED 22:05 → SUATTDRO 05-21 10:59 → MED 05-27 08:48
PROVIDERS: ADMIT Internal Medicine; ATTEND Hospitalist